=== PATIENT | female | born 1965 | race Two or more races ===

== ENCOUNTER 2024-04-08 14:42 | Emergency (ER) | payer MEDICAID, OTHER ==
[2024-04-08 15:20] LABS: BILIRUBIN,URINE NEGATIVE (NEGATIVE); GLUCOSE, URINE (UA) NEGATIVE (NEGATIVE); KETONES,URINE (UA) NEGATIVE (NEGATIVE); LEUKOCYTE ESTERASE, URINE NEGATIVE (NEGATIVE); NITRITE,URINE NEGATIVE (NEGATIVE); OCCULT BLOOD,URINE TRACE-LYSE (NEGATIVE); PH,URINE 5.5 PH (5.0-7.5); PROTEIN,URINE NEGATIVE (NEGATIVE); UROBILINOGEN,URINE 0.2 (NORMAL) E.U./dL (NORMAL)
[2024-04-08 15:22] LABS: CLARITY,URINE CLEAR (CLEAR)
[2024-04-08 15:53] LABS: BASOPHILS # (AUTO) 0.1 10^3/uL (0.0-0.1); BASOPHILS % (AUTO) 0.8 %; EOSINOPHILS # (AUTO) 0.1 10^3/uL (0.0-0.7); EOSINOPHILS % (AUTO) 1.5 %; HCT - HEMATOCRIT 37.1 % (37.0-47.0); HGB - HEMOGLOBIN 12.4 g/dL (12.0-16.0); LYMPHOCYTES # (AUTO) 3.7 10^3/uL (1.5-3.5); LYMPHOCYTES % (AUTO) 49.6 %; MEAN CORPUSCULAR HEMOGLOBIN 30.5 pg (27.0-31.0); MEAN CORPUSCULAR HGB CONC 33.4 g/dL (32.0-36.0); MEAN CORPUSCULAR VOLUME 91.4 fL (81.0-99.0); MEAN PLATELET VOLUME 9.7 fL (7.9-10.8); MONOCYTES # (AUTO) 0.4 10^3/uL (0.0-1.0); MONOCYTES % (AUTO) 5.1 %; NEUTROPHILS # (AUTO) 3.2 10^3/uL (1.5-6.6); NEUTROPHILS % (AUTO) 42.7 %; PLT - PLATELET COUNT 310 10^3/uL (130-450); RED BLOOD COUNT 4.06 10^6/uL (4.20-5.40); RED CELL DISTRIBUTION WIDTH 13.2 % (12.0-15.0); WHITE BLOOD COUNT 7.4 x10^3/uL (4.8-10.8)
[2024-04-08 16:00] LABS: ALBUMIN 4.4 g/dL (3.2-5.5); ALBUMIN/GLOBULIN RATIO 1.8 (1.0-2.2); BILIRUBIN,TOTAL 0.6 mg/dL (0.2-1.0); CALCIUM 9.4 mg/dL (8.5-10.3); CREATININE 0.8 mg/dL (0.6-1.3); POTASSIUM 3.7 mmol/L (3.5-4.5); TOTAL PROTEIN 6.9 g/dL (6.4-8.9)
[2024-04-08 17:06] VITALS: O2SAT 100
[2024-04-08] MEDS ORDERED: iohexoL-300 100 ML VIAL ONE (17:10)
[2024-04-08] MEDS: iohexoL-300 100 ML VIAL IVP ONE (17:31)
--- NOTE | 2024-04-08 17:41 | CT Report ---
PROCEDURE: Abdomen/Pelvis W INDICATIONS: LLQ abd pain CONTRAST: 100ml omni 300 TECHNIQUE: After the administration of intravenous contrast, a CT scan of the abdomen and pelvis was performed. Images were recorded and evaluated at appropriate window settings. Reformats: coronal and sagittal. F or radiation dose reduction, the following was used: automated exposure control, adjustment of mA and /or kV according to patient size. COMPARISON: None. FINDINGS: Image quality: Diagnostic. Lower chest: Unremarkable. Liver: No solid mass. And apparent central liver cyst can be seen. Gallbladder: Collapsed at the time of this study, without a focal abnormality seen. Biliary tree: No intrahepatic or extrahepatic dilation, accounting for age. Spleen: No splenomegaly. Pancreas: No pancreatic ductal dilation. Adrenals: No adrenal nodule. Kidneys and ureters: No hydronephrosis. No renal cystic lesion which requires follow up. No solid mas s. Stomach, bowel and peritoneum: No gastric or small bowel dilation. No abnormal wall thickening. No pa thologic free fluid. Extensive distal colonic diverticulosis is seen, without findings of active diverticulitis. A normal appendix is seen. Lymph nodes: No central or retroperitoneal adenopathy. Vessels: No infrarenal aortic aneurysm. Patent portal vein. PELVIS Reproductive organs: This patient is status post hysterectomy. No adnexal masses can be seen. Bladder: No abnormal wall thickening, accounting for underdistention. Pelvic lymph nodes: No pelvic adenopathy by size criteria. Bones: No aggressive osseous abnormality. Focal degenerative change can be seen at T12-L1 and at L4-L 5. Other: No significant ventral hernia is seen. There is a mild fat-containing left groin hernia. IMPRESSION: Extensive distal colonic diverticulosis is seen, without cherelle findings of active diverticulitis. Additional findings: Focal degenerative change at T12-L1 and at L4-L5 Hysterectomy Mild fat-containing left groin hernia Reviewed by: Ari Abreu MD on 04/08/2024 4:39 PM [facility] Approved by: Ari Abreu MD on 04/08/2024 4:39 PM MER Station ID: [id number]
--- NOTE | 2024-04-08 18:12 | ED Physician Documentation ---
PD HPI ABD PAIN - Stated complaint Stated Complaint: LT ABD PX - Chief complaint Chief Complaint: Abd Pain - History obtained from History obtained from: Patient - History of Present Illness Timing - onset: How many days ago (several) Timing - details: Intermittant Pain level max: 7 Pain level now: 4 Quality: Aching, Pain Location: LLQ Associated symptoms: No: Vomiting, Diarrhea, Constipation, Melena, Hematochezia, Dysuria Recently seen: Not recently seen - Additional information Additional information: 58-year-old female presents to the emergency department with several days of le ft lower quadrant abdominal pain. Waxes and wanes in intensity. No vomiting or diarrhea. No constipation. No blood in the stool. Has not had similar symptoms previously. Does not take any medications. No recent travel. No chest pain. No shortness of breath. Review of Systems Constitutional: denies: Fever, Chills GI: denies: Vomiting, Diarrhea Skin: denies: Rash Musculoskeletal: denies: Neck pain, Back pain Neurologic: denies: Headache PD PAST MEDICAL HISTORY - Past Medical History Past Medical History: Yes - Past Surgical History Past Surgical History: Yes /[employer]: Hysterectomy - Present Medications Home Medications: Ambulatory Orders Medication Instructions Recorded Confirmed Amox/Clav 875/125 [Augmentin] 1 each PO Q8H #30 tablet 04/08/24 - Allergies Allergies/Adverse Reactions: Allergies Allergy/AdvReac Type Severity Reaction Status Date / Time No Known Drug Allergies Allergy Verified 04/08/24 14:54 - Social History Does the pt smoke?: No Smoking Status: Never smoker Does the pt drink ETOH?: No Does the pt have substance abuse?: No - Immunizations Immunizations are current?: Yes PD ED PE NORMAL - Vitals Vital signs reviewed: Yes - General General: Alert and oriented X 3, No acute distress - HEENT HEENT: PERRL, Moist mucous membranes - Neck Neck: Supple, no meningeal sign - Cardiac Cardiac: RRR, Strong equal pulses - Respiratory Respiratory: No respiratory distress, Clear bilaterally - Abdomen Abdomen: Soft, Non distended, Other (Tender palpation left lower quadrant. No peritoneal signs.) - Back Back: No CVA TTP, No spinal TTP - Derm Derm: Warm and dry - Neuro Neuro: Alert and oriented X 3 - Psych Psych: Normal mood, Normal affect Results - Vitals Vitals: Vital Signs - 24 hr 04/08/24 04/08/24 04/08/24 14:50 17:05 18:22 Temperature 36.7 C 36.4 C L 36.9 C Heart Rate 68 64 86 Respiratory 16 18 18 Rate Blood Pressure 120/60 139/82 H 123/84 H O2 Saturation 99 100 100 Oxygen O2 Source Room air - Labs Labs: Laboratory Tests 04/08/24 04/08/24 04/08/24 15:10 15:42 15:42 WBC 7.4 RBC 4.06 L Hgb 12.4 Hct 37.1 MCV 91.4 MCH 30.5 MCHC 33.4 RDW 13.2 Plt Count 310 MPV 9.7 Neut # (Auto) 3.2 Lymph # (Auto) 3.7 H [place] # (Auto) 0.4 Eos # (Auto) 0.1 Baso # (Auto) 0.1 Absolute Nucleated RBC 0.00 Nucleated RBC % 0.0 Sodium 139 Potassium 3.7 Chloride 106 Carbon Dioxide 27 Anion Gap 6.0 BUN 13 Creatinine 0.8 Estimated GFR (MDRD) 73 L Glucose 115 H Calcium 9.4 Total Bilirubin 0.6 AST 18 ALT 16 Alkaline Phosphatase 98 Total Protein 6.9 Albumin 4.4 Globulin 2.5 Albumin/Globulin Ratio 1.8 Lipase 42 Urine Color YELLOW Urine Clarity CLEAR Urine pH 5.5 Ur Specific [place] 1.010 Urine Protein NEGATIVE Urine Glucose (UA) NEGATIVE Urine Ketones NEGATIVE Urine Occult Blood TRACE-LYSE Urine Nitrite NEGATIVE Urine Bilirubin NEGATIVE Urine Urobilinogen 0.2 (NORMAL) Ur Leukocyte Esterase NEGATIVE Ur Microscopic Review NOT INDICATED Urine Culture Comments NOT INDICATED - Rads (name of study) CT abdomen pelvis Relevant Findings:: Final report received, See rad report PD Medical Decision Making - ED course Complexity details: reviewed results, re-evaluated patient, considered differential, d/w patient ED course: 58-year-old female with left lower quadrant tenderness on examination. CT scan does show diverticulosis, does appear to have some inflammation on the images that could be consistent with diverticulitis, symptoms are consistent with diver ticulitis. We discussed risks and benefits of antibiotic treatment, she would like to try antibiotics. Will place her on Augmentin. She is very well- appearing, nontoxic. Afebrile. Recommend colonoscopy after treatment. Patient declines any pain medication here or for home. There is also a small hernia on CT scan, but no evidence of incarceration on examination. Patient counseled regarding signs and symptoms for which I believe and urgent re-evaluation would be necessary. Patient with good understanding of and agreement to plan and is comfortable going home at this time This document was made in part using voice recognition software. While efforts are made to proofread this document, sound alike and grammatical errors may occur. Departure - Departure Disposition: Home, Self Care Clinical Impression: Diverticulitis Condition: Good Instructions: ED Diverticulitis Follow-Up: your,doctor in 1 week [Other] Prescriptions: Amox/Clav 875/125 [Augmentin] 1 each PO Q8H #30 tablet Comments: Your prescriptions were sent to [facility] in [place]. Please follow-up with your doctor for further care. Please return if you worsen. If you have not had a colonoscopy in the last 5 to 7 years, you should have a colonoscopy. Please take all antibiotics until gone. Forms: PCP List
[2024-04-08] MEDS: AMOX/CLAV 875 MG/125 MG TABLET PO STA (18:19)
[2024-04-08 18:26] VITALS: BP 123/84
== END 2024-04-08 18:22 | disposition home or self-care (01) ==
LOC: ED 14:42
DX: K57.32 Diverticulitis of large intestine without perforation or abscess without bleeding (principal)
CPT/HCPCS: 36415; 74177; 80053; 81003; 83690; 85025; 99283; 99284; A9270; Q9967; 81001; 87086